=== PATIENT | female | born 1945 | race Native Hawaiian/Other Pacific Islander ===

== ENCOUNTER 2018-11-28 01:15 | Emergency (ER) | payer OTHER ==
[~2018-11-28] VITALS: Ht 165.1 cm; Wt 72.6 kg
[2018-11-28 02:15] LABS: PLATELET COUNT 301 K/uL (152-353)
[2018-11-28 02:46] LABS: POTASSIUM 3.8 mmol/L (3.6-5.2)
[2018-11-28 04:46] VITALS: BP 139/62; TEMP 98.3
[2018-11-28] MEDS ORDERED: BENADRYL ALLERG25 MG PO (05:29)
[2018-11-28] MEDS ORDERED: BUSPIRONE5 MG PO (05:30)
[2018-11-28] MEDS ORDERED: NITROGLYCERIN0.4 MG SL (05:31)
[2018-11-28] MEDS ORDERED: ALPR0.2566 PO (05:31)
[2018-11-28] MEDS ORDERED: ONDA4TAB3 PO (05:32)
[2018-11-28] MEDS ORDERED: HUMALOG MI75 MG/25 K SC (05:34)
[2018-11-28] MEDS ORDERED: LIPITOR20 MG PO (05:37)
[2018-11-28] MEDS ORDERED: HUMALOG KW100 UNIT/M SC (05:37)
[2018-11-28] MEDS ORDERED: ENOX30IN2 SC (05:38)
[2018-11-28] MEDS ORDERED: HYDR10TA47 PO (05:39)
[2018-11-28] MEDS ORDERED: MELATONIN3 M3 PO (05:39)
[2018-11-28] MEDS ORDERED: MULTIVITAMIN PL1 CHW PO (05:41)
[2018-11-28] MEDS ORDERED: ASPIRIN 81 LOW81 MG PO (05:42)
[2018-11-28] MEDS ORDERED: CELEXA40 MG PO (05:43)
[2018-11-28] MEDS ORDERED: BUPROPN HCL300 MG PO (05:43)
[2018-11-28] MEDS ORDERED: ZESTRIL40 MG PO (05:44)
[2018-11-28] MEDS ORDERED: CLOP75TA2 PO (05:44)
== END 2018-11-28 04:47 | disposition other institution (70) ==
LOC: ED 01:15
PROVIDERS: Internal Medicine
DX: R45.851 Suicidal ideations (principal); J18.8 Other pneumonia, unspecified organism
CPT/HCPCS: 36415; 80053; 85027; 93005; 96372; 99285; J0696

== ENCOUNTER 2018-12-03 22:47 | Inpatient (IN) | payer OTHER ==
[~2018-12-03] VITALS: Ht 157.5 cm; Wt 66.3 kg
[~2018-12-03 22:47] MED LIST: ALPR0.2566 PO; ASPIRIN 81 LOW81 MG PO; BENADRYL ALLERG25 MG PO; BUPROPN HCL300 MG PO; BUSPIRONE5 MG PO; CELEXA40 MG PO; CLOP75TA2 PO; ENOX30IN2 SC; HUMALOG KW100 UNIT/M SC; HUMALOG MI75 MG/25 K SC; HYDR10TA47 PO; LIPITOR20 MG PO; MELATONIN3 M3 PO; MULTIVITAMIN PL1 CHW PO; NITROGLYCERIN0.4 MG SL; ONDA4TAB3 PO; ZESTRIL40 MG PO
[2018-12-03 23:00] VITALS: BP 142/74; TEMP 97.3
[2018-12-03 23:04] LABS: PLATELET COUNT 492 K/uL (152-353)
[2018-12-03 23:13] LABS: POTASSIUM 2.8 mmol/L (3.6-5.2); SODIUM 137 mmol/L (136-145)
[2018-12-03 23:19] LABS: PARTIAL THROMBOPLASTIN TIME 22.1 SECONDS (24.5-33.6)
[2018-12-04] VITALS (20 sets, daily range): BP systolic 103–161; BP diastolic 52–80; TEMP 96.4–98.1; Ht 157.5 cm; Wt 66.3 kg
[2018-12-04 05:54] LABS: POTASSIUM 4.2 mmol/L (3.6-5.2)
[2018-12-04] MEDS ORDERED: LITHIUM CARB300 MG PO (08:49)
[2018-12-04] MEDS ORDERED: TRILEPTAL300 MG PO (08:51)
[2018-12-04] MEDS ORDERED: CYAN10009 IM (08:59)
[2018-12-04] MEDS ORDERED: ABILIFY MYCITE5 MG PO (09:00)
[2018-12-04] MEDS ORDERED: STOOL SOFTNR100 MG PO (09:09)
[2018-12-04] MEDS ORDERED: LEXAPRO20 MG PO (09:10)
[2018-12-04] MEDS ORDERED: BUSPIRONE HYDROC5 MG PO (09:12)
[2018-12-04] MEDS ORDERED: BUPR150T PO (09:15)
[2018-12-04] MEDS ORDERED: NOVOLIN 70/30 F1 IN1 SC (10:24)
[2018-12-04] MEDS ORDERED: MAGNSUS68 PO (10:25)
[2018-12-04] MEDS ORDERED: LOPERAMIDE2 MG PO (10:27)
[2018-12-04] MEDS ORDERED: CLONAZEP ODT0.25 MG PO (10:29)
[2018-12-04] MEDS ORDERED: HYDR2.5C36 EX (10:54)
[2018-12-06] MEDS ORDERED: ABILIFY MYCITE5 MG PO (21:56)
[2018-12-06] MEDS ORDERED: BUSPIRONE HYDROC5 MG PO (21:57)
[2018-12-06] MEDS ORDERED: LEXAPRO20 MG PO (21:58)
[2018-12-06] MEDS ORDERED: STOOL SOFTNR100 MG PO (21:58)
[2018-12-06] MEDS ORDERED: BUPR150T PO (21:58)
[2018-12-06] MEDS ORDERED: TRILEPTAL300 MG PO (21:59)
[2018-12-06] MEDS ORDERED: HYDR2.5C36 EX (21:59)
[2018-12-06] MEDS ORDERED: CYAN10009 IM (22:00)
== END 2018-12-04 19:40 | disposition other institution (70) | DRG 638 ==
LOC: ED 22:47 → ICU 23:30
PROVIDERS: Student in an Organized Health Care Education/Training Program; ADMIT Internal Medicine
DX: E11.649 Type 2 diabetes mellitus with hypoglycemia without coma (principal); G40.802 Other epilepsy, not intractable, without status epilepticus; F33.2 Major depressive disorder, recurrent severe without psychotic features; Z79.4 Long term (current) use of insulin; J44.9 Chronic obstructive pulmonary disease, unspecified; I10 Essential (primary) hypertension; E78.49 Other hyperlipidemia; I25.10 Atherosclerotic heart disease of native coronary artery without angina pectoris; F41.1 Generalized anxiety disorder
CPT/HCPCS: 36415; 36600; 80048; 80053; 81000; 82805; 82962; 83735; 84443; 84484; 85027; 85610; 85730; 87086; 87088; 93005; 94760; 96365; 96375; 99285; J1815; J7060